=== PATIENT | female | born 2000 | race Two or more races ===

== ENCOUNTER 2024-08-12 23:58 | Emergency (ER) | payer BC ==
[~2024-08-12] VITALS: Ht 160 cm; Wt 77.0 kg
[2024-08-13] VITALS: TEMP 97.8; O2SAT 98
[2024-08-13] MEDS: BACITRACIN ZINC OINT UDPKT TOP ONE (00:30)
[2024-08-13] MEDS: LORAZEPAM 0.5MG TABLET PO ONE (00:30)
[2024-08-13] MEDS: LIDOCAINE HCL/PF 1% 10 MG/ML 5ML VIAL INFIL ONE (01:02)
[2024-08-13] MEDS: TETANUS, DIPHTHERIA, PERTUSSIS VAC/PF 0.5ML (>10YR OLD) IM ONE (01:27)
[2024-08-13 01:37] VITALS: BP 113/73; PULSE 88; RESP 16; O2SAT 98
== END 2024-08-13 01:37 | disposition home or self-care (01) ==
LOC: ER 23:58
DX: S61.012A Laceration without foreign body of left thumb without damage to nail, initial encounter (principal); W26.0XXA Contact with knife, initial encounter; Y93.89 Activity, other specified; Y92.89 Other specified places as the place of occurrence of the external cause; Y99.8 Other external cause status
CPT/HCPCS: 12001; 99283; 90715; 90471; J3490; Z7610 ×3